=== PATIENT | male | born 1955 | race Caucasian/White ===

== ENCOUNTER 2025-03-21 07:00 | Outpatient (RCR) | payer MEDICARE, SELFPAY | END 2025-03-30 06:00 | disposition home or self-care (01) | LOC: HO.CR 07:00 | PROVIDERS: PCP Internal Medicine; Visit Provider Internal Medicine | DX: I11.0 Hypertensive heart disease with heart failure (principal); I50.22 Chronic systolic (congestive) heart failure; I26.99 Other pulmonary embolism without acute cor pulmonale; I48.92 Unspecified atrial flutter; Q21.12 Patent foramen ovale | CPT/HCPCS: 93798 ==